=== PATIENT | female | born 1995 | race African-American/Black ===

== ENCOUNTER 2017-06-11 18:02 | Emergency (ER) | payer OTHER ==
[2017-06-11] MEDS ORDERED: ONDANSETRON 4 MG TAB.RAPDIS PO ONE (20:13)
--- NOTE | 2017-06-11 20:35 | ER Document Report ---
ED Medical Screen (RME) - General Chief Complaint: Nausea/Vomiting Stated Complaint: VOMITING Time Seen by Provider: 06/11/17 20:06 Notes: Patient is a 21-year-old female who presents to the emergency department today with complaints of vomiting which began at 0700. Patient states he has had associated abdominal cramping and diarrhea as well. Patient states she has noticed specks of red in her vomit but has not noticed any in her stool. Patient denies any sick contacts or dysuria. I have greeted and performed a rapid initial assessment of this patient. A comprehensive ED assessment and evaluation of the patient, analysis of test results, and completion of the medical decision making process will be conducted by additional ED providers. Review of systems: Constitutional: No symptoms reported EENT: No symptoms reported Cardiovascular: No symptoms reported Respiratory: No symptoms reported Gastrointestinal: No symptoms reported Genitourinary: No symptoms reported Musculoskeletal: No symptoms reported Skin: No symptoms reported Hematologic/Lymphatic: No symptoms reported Neurological/Psychological: No symptoms reported Yes All other systems reviewed and negative Physical Exam: General: Alert, appears well. HEENT: Normocephalic. Atraumatic. PERRLA. Extraocular movements intact. Oropharynx clear. Neck: Supple. Respiratory: No respiratory distress. Abdominal: Normal Inspection. No distension. Extremities: Moves all four extremities. Neurological: Normal cognition. AAOx4. Normal speech. Psychological: Normal affect. Normal Mood. Skin: Warm. Dry. Normal color. TRAVEL OUTSIDE OF THE [place] IN LAST 30 DAYS: No - Related Data Allergies/Adverse Reactions: metronidazole [From Flagyl] Adverse Reaction (Verified 06/11/17 20:02) Past Medical History - Social History Chew tobacco use (# tins/day): No Frequency of alcohol use: None Drug Abuse: None Renal/ Medical History: Denies: Hx Peritoneal Dialysis Physical Exam - Vital signs Vitals: Temp Pulse Resp BP Pulse Ox 97.5 F 66 16 97/51 L 100 06/11/17 18:08 06/11/17 18:08 06/11/17 18:08 06/11/17 18:08 06/11/17 18:08 Course - Vital Signs Vital signs: Temp Pulse Resp BP Pulse Ox 97.5 F 66 16 97/51 L 100 06/11/17 18:08 06/11/17 18:08 06/11/17 18:08 06/11/17 18:08 06/11/17 18:08
[2017-06-11 20:55] LABS: APPEARANCE,URINE SLIGHTLY-CLOUDY; BILIRUBIN,URINE NEGATIVE (NEGATIVE); COLOR,URINE YELLOW; GLUCOSE, URINE NEGATIVE (NEGATIVE); KETONES,URINE 80 mg/dL (NEGATIVE); LEUKOCYTE ESTERASE,URINE NEGATIVE (NEGATIVE); NITRITE,URINE NEGATIVE (NEGATIVE); PROTEIN,URINE 100 mg/dL (NEGATIVE); URINE SPECIFIC GRAVITY 1.031; UROBILINOGEN,URINE NEGATIVE mg/dL (<2.0)
--- NOTE | 2017-06-11 21:09 | ER Document Report ---
ED General - General Mode of Arrival: Ambulatory Information source: Patient TRAVEL OUTSIDE OF THE [place] IN LAST 30 DAYS: No - General Chief Complaint: Nausea/Vomiting Stated Complaint: VOMITING Time Seen by Provider: 06/11/17 20:06 Notes: Patient is a 21-year-old female presenting to the emergency department complaining of vomiting, diarrhea,and abdominal cramps onset this morning around 0600. Patient states that her abdominal cramps are relieved after she has a bowel movement. At bedside patient states that she feels better after receiving a dose of Zofran , further stating she only vomited once after receiving her dose. Patient's last menstrual period with 06/03/2017. (SHALA CUEVAS) - Related Data Allergies/Adverse Reactions: metronidazole [From Flagyl] Adverse Reaction (Verified 06/11/17 20:02) Past Medical History - General Information source: Patient - Social History Smoking Status: Never Smoker Chew tobacco use (# tins/day): No Frequency of alcohol use: None Drug Abuse: None Family History: Reviewed & Not Pertinent Patient has suicidal ideation: No Patient has homicidal ideation: No Review of Systems - Review of Systems Constitutional: No symptoms reported EENT: No symptoms reported Cardiovascular: No symptoms reported Gastrointestinal: See HPI, Abdominal pain, Diarrhea, Nausea, Vomiting Genitourinary: No symptoms reported Female Genitourinary: No symptoms reported Musculoskeletal: No symptoms reported Skin: No symptoms reported Hematologic/Lymphatic: No symptoms reported Neurological/Psychological: No symptoms reported -: Yes All other systems reviewed and negative Physical Exam - General General appearance: Appears well, Alert In distress: None - HEENT Head: Normocephalic, Atraumatic Eyes: Normal Conjunctiva: Normal Extraocular movements intact: Yes Pupils: PERRL Mucous membranes: Normal - Respiratory Respiratory status: No respiratory distress Chest status: Nontender Breath sounds: Normal Chest palpation: Normal - Cardiovascular Rhythm: Regular Heart sounds: Normal auscultation Murmur: No Friction rub: No Gallop: None auscultated - Abdominal Inspection: Normal Distension: No distension Bowel sounds: Normal Tenderness: Nontender. No: Guarding, Rebound Organomegaly: No organomegaly - Back Back: Normal - Extremities General upper extremity: Normal ROM General lower extremity: Normal ROM - Neurological Neuro grossly intact: Yes Cognition: Normal Orientation: AAOx4 [place] Scale Eye Opening: Spontaneous [place] Com[place] Scale Verbal: Oriented [place] Scale Motor: Obeys Commands [place] Scale Total: 15 Speech: Normal - Psychological Associated symptoms: Normal affect, Normal mood - Skin Skin Temperature: Warm Skin Moisture: Dry Skin Color: Normal - Vital signs Vitals: Temp Pulse Resp BP Pulse Ox 97.5 F 66 16 97/51 L 100 06/11/17 18:08 06/11/17 18:08 06/11/17 18:08 06/11/17 18:08 06/11/17 18:08 Course - Re-evaluation Re-evalutation: 06/11/17 21:44 Patient reports she is feeling much better, tolerating oral fluids with no nausea. She had a single 4 mg dose of Zofran earlier. She will be discharged with a Zofran 6 tabs dispensed pack. (SERJIO MERRILL) - Vital Signs Vital signs: Temp Pulse Resp BP Pulse Ox 98.1 F 70 16 110/66 100 06/11/17 21:55 06/11/17 21:55 06/11/17 21:55 06/11/17 21:55 06/11/17 21:55 - Laboratory Laboratory results interpreted by me: 06/11/17 20:20 Urine Protein 100 H Urine Ketones 80 H Discharge - Discharge Clinical Impression: Nausea vomiting and diarrhea Condition: Stable Disposition: HOME, SELF-CARE Additional Instructions: Gastroenteritis You most likely have gastroenteritis. This is an irritation of the stomach and intestinal tract. It's usually caused by a virus, but can also be caused by bacteria, toxins that cause food poisoning, or excessive alcohol intake. Symptoms may include fever, painful abdominal cramps, nausea, vomiting , and diarrhea. Start with small amounts (two to six ounces) of clear liquids (soft drinks , herb teas, broth, etc). Try to take fluids frequently even if you are vomiting, to prevent dehydration. When liquids are being consumed successfully , advance to small amounts of bland food (mashed potato, toast) for 6 - 12 hours. Gastroenteritis rarely requires medication. It goes away by itself. Use good handwashing so you don't spread germs. Wash underwear in very hot water. If symptoms are severe, talk to the doctor. Call your physician if blood appears in your vomitus or stool, if vomiting lasts longer than 24 hours, if the abdominal pain worsens or becomes localized to one area, or if you develop high fever. Take the Zofran 1 tablet dissolved of the tongue every 4-6 hours if needed for nausea. Drink small sips of cool clear liquids throughout the evening. Try Pepto-Bismol for diarrhea if needed. Follow-up with local medical doctor if not improving. RETURN TO THE EMERGENCY ROOM IF ANY NEW OR WORSENING SYMPTOMS. Forms: Return to Work Scribe Attestation: 06/11/17 23:23 I personally performed the services described in the documentation, reviewed and edited the documentation which was dictated to the scribe in my presence, and it accurately records my words and actions. (SERJIO MERRILL) Scribe Documentation - Scribe Written by Mary:: Mary Lechuga, 06/11/2017 21:09 acting as scribe for :: Oanh
[2017-06-11] MEDS ORDERED: ONDANSETRON ODT 4 MG TAB (6 TAB/ER DISP) PO PRN (21:43)
[2017-06-11 22:08] VITALS: BP 110/66
== END 2017-06-11 21:55 | disposition home or self-care (01) ==
LOC: ER 18:02
DX: R11.2 Nausea with vomiting, unspecified (principal); R19.7 Diarrhea, unspecified; R10.9 Unspecified abdominal pain
CPT/HCPCS: 99284; 81025; 81001; S0119

== ENCOUNTER 2018-01-04 14:50 | Emergency (ER) | payer OTHER ==
[2018-01-04 14:57] VITALS: BP 105/64
[2018-01-04] MEDS ORDERED: LEVONORGESTREL 1.5 MG TABLET (1 TAB/ER-USE) PO ONE (15:17)
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
== END 2018-01-04 15:40 | disposition home or self-care (01) ==
LOC: ER 14:50
DX: Z04.89 Encounter for examination and observation for other specified reasons (principal)
CPT/HCPCS: 99281; A9270

== ENCOUNTER 2018-03-09 13:39 | Emergency (ER) | payer OTHER ==
[2018-03-09] MEDS ORDERED: NORMAL SALINE 1000 ML 1,000 ML IV ONE (13:50)
[2018-03-09] MEDS ORDERED: ONDANSETRON HCL INJ/PF 4 MG/2 ML SDV IV ONE (13:50)
--- NOTE | 2018-03-09 13:50 | ER Document Report ---
ED Medical Screen (RME) - General Chief Complaint: Vomiting Stated Complaint: VOMITING Notes: 22-year-old female to the emergency department chief complaint of periumbilical pain, nausea and vomiting. Started this morning. Sharp pain radiating downward from the bellybutton. Large amount of nausea and vomiting. Cannot keep anything down. Just finished her period. No vaginal bleeding or spotting at this time. Still has her appendix, uterus, ovaries and gallbladder. I have greeted and performed a rapid initial assessment of this patient. A comprehensive ED assessment and evaluation of the patient, analysis of test results and completion of the medical decision making process will be conducted by additional ED providers. TRAVEL OUTSIDE OF THE [place] IN LAST 30 DAYS: No - Related Data Allergies/Adverse Reactions: metronidazole [From Flagyl] Adverse Reaction (Verified 03/09/18 13:40) Past Medical History - General Information source: Patient Renal/ Medical History: Denies: Hx Peritoneal Dialysis - Immunizations Immunizations up to date: Yes Review of Systems - Review of Systems Notes: Review of systems positive for the following: Nausea, vomiting, pelvic pain, abdominal pain Physical Exam - Vital signs Interpretation: Normal - Respiratory Respiratory status: No respiratory distress Chest status: Nontender Breath sounds: Normal Chest palpation: Normal - Cardiovascular Rhythm: Regular Heart sounds: Normal auscultation Murmur: No - Abdominal Inspection: Normal Distension: No distension Bowel sounds: Normal Tenderness: Nontender Organomegaly: No organomegaly
[2018-03-09 14:25] LABS: ABSOLUTE LYMPHOCYTES (AUTO) 0.6 10^3/uL (0.5-4.7); ABSOLUTE MONOCYTES (AUTO) 0.1 10^3/uL (0.1-1.4); ABSOLUTE NEUT (AUTO) 3.3 10^3/uL (1.7-8.2); BASOPHILS % (AUTO) 0.3 % (0-2); EOSINOPHILS % (AUTO) 0.1 % (0-6); HEMATOCRIT 29.8 % (36.0-47.0); HEMOGLOBIN 9.7 g/dL (12.0-15.5); LYMPHOCYTES % (AUTO) 14.2 % (13-45); MEAN CORPUSCULAR HEMOGLOBIN 20.4 pg (27.0-33.4); MEAN CORPUSCULAR HGB CONC 32.6 g/dL (32.0-36.0); MEAN CORPUSCULAR VOLUME 63 fl (80-97); MONOCYTES % (AUTO) 3.6 % (3-13); PLATELET COUNT 361 10^3/uL (150-450); RED BLOOD COUNT 4.75 10^6/uL (3.72-5.28); RED CELL DISTRIBUTION WIDTH 21.5 % (11.5-14.0); SEGMENTED NEUTROPHILS % (AUTO) 81.8 % (42-78); TOTAL CELLS COUNTED % (AUTO) 100 %
--- NOTE | 2018-03-09 14:34 | ER Document Report ---
ED General - General Chief Complaint: Vomiting Stated Complaint: VOMITING Time Seen by Provider: 03/09/18 13:50 Notes: 22-year-old female with no past medical history presents to the emergency department for shaking, vomiting, abdominal pain, and dizziness. She states that started this morning where she had intractable vomiting that was liquid and yellow. She complains of fevers, chills, nausea, dizziness, reduced appetite, loose stools, inability to hold anything down. She denies pain diarrhea, hematochezia, chest pain, shortness of breath, or any urinary symptoms. She denies any vaginal bleeding or abnormal discharge, states she just finished her period. She had a similar episode last year but states this time it is much worse. Last time she ate was yesterday. She denies any recent travel or any changes with her diet. TRAVEL OUTSIDE OF THE [place] IN LAST 30 DAYS: No - Related Data Allergies/Adverse Reactions: metronidazole [From Flagyl] Adverse Reaction (Verified 03/09/18 13:40) Past Medical History - General Information source: Patient - Social History Smoking Status: Never Smoker Chew tobacco use (# tins/day): No Frequency of alcohol use: Occasional Drug Abuse: None Family History: Reviewed & Not Pertinent Patient has suicidal ideation: No Patient has homicidal ideation: No Renal/ Medical History: Denies: Hx Peritoneal Dialysis - Immunizations Immunizations up to date: Yes Review of Systems - Review of Systems Constitutional: See HPI EENT: No symptoms reported Cardiovascular: See HPI Respiratory: See HPI Gastrointestinal: See HPI Genitourinary: See HPI Female Genitourinary: No symptoms reported Musculoskeletal: No symptoms reported Skin: No symptoms reported Hematologic/Lymphatic: No symptoms reported Neurological/Psychological: No symptoms reported Physical Exam - Vital signs Vitals: Temp Pulse Resp BP Pulse Ox 98.0 F 89 20 106/64 98 03/09/18 13:54 03/09/18 13:54 03/09/18 13:54 03/09/18 13:54 03/09/18 13:54 - Notes Notes: Reviewed vital signs and nursing note as charted by RN. CONSTITUTIONAL: Ill-appearing, acting appropriately for age HEAD: Normocephalic, atraumatic, no swelling EYES: PERRL, Conjunctivae clear, no drainage, EOMI, no scleral icterus ENT: External ears without lesions, External auditory canal is patent, no rhinorrhea, Pharynx without erythema or lesions, no tonsillar hypertrophy, airway patent, mucous membranes pink and moist NECK: Supple, no cervical lymphadenopathy, no masses CARD: Regular rate and rhythm, no murmurs, no rubs, no gallops, capillary refill < 2 seconds, symmetric pulses RESP: The lungs are clear to auscultation bilaterally, no wheezing, no rales, no rhonchi. Respiratory rate and effort are normal, normal chest excursion. No respiratory distress, no retractions, no stridor, no nasal flaring, no accessory muscle use. ABD/GI: Normal bowel sounds, non-distended, soft, non-tender, no rebound, no guarding, no palpable organomegaly EXT: Normal ROM in all joints, non-tender to palpation, no effusions, no edema SKIN: Normal color for age and race, warm, dry, good turgor, no acute lesions noted NEURO: No facial asymmetry, moves all extremities equally, motor and sensory function intact Course - Re-evaluation Re-evalutation: 03/09/18 14:33 Fairly ill-appearing 22-year-old female presents to the emergency department with intractable vomiting and nausea that started this morning. She is unable to hold anything down and is vomited several times. Last meal was last night. She denies diarrhea but says her stools are loose. She was seen in this emergency department for similar symptoms approximately 1 year ago and was diagnosed with gastroenteritis but states this illness is much worse. Normal saline 1 L IV was started in triage and is currently infusing. She was given Zofran 8 mg IV at the bedside. 03/09/18 14:34 03/09/18 16:35 Patient was given a second liter of Ringer's lactate because she has a hyperchloremic metabolic acidosis. Patient states she initially felt better. Patient then vomited and still has rigors. Plan is to give Reglan 10 mg IV and reassess. 03/09/18 17:40 Patient was able to give a urine sample which did show evidence of mild dehydration urine drug screen was added and was positive for marijuana. After interviewing patient patient did state that she has smoked marijuana last night. Because there is no evidence of infectious etiology or travel her symptoms are most likely secondary to hyperemesis secondary to marijuana use. Patient was counseled and I explained to her why this happens in that she needs to stop smoking marijuana if she does not wanted to happen again. Patient states she is feeling better and she did pass a p.o. challenge. State patient states she does feel well enough to discharge and wants to go home. - Vital Signs Vital signs: Temp Pulse Resp BP Pulse Ox 98.0 F 89 20 106/64 98 03/09/18 13:54 03/09/18 13:54 03/09/18 13:54 03/09/18 13:54 03/09/18 13:54 - Laboratory Result Diagrams: 03/09/18 14:08 03/09/18 14:08 Laboratory results interpreted by me: 03/09/18 03/09/18 03/09/18 14:08 14:08 16:08 Hgb 9.7 L Hct 29.8 L MCV 63 L MCH 20.4 L RDW 21.5 H Seg Neutrophils % 81.8 H Chloride 111 H Carbon Dioxide 19 L Glucose 129 H Total Protein 8.5 H Albumin 5.1 H Urine Ketones 20 H Discharge - Discharge Clinical Impression: Hyperemesis Condition: Good Disposition: HOME, SELF-CARE Instructions: Intravenous (IV) Fluids ([facility]), Reglan ([facility]) Additional Instructions: You were seen in the emergency department this evening for intractable vomiting. Because you had no recent travel or there was no evidence of infection your symptoms are most likely related to marijuana use. This condition called hyperemesis secondary to marijuana use is fairly common. The only way to prevent it from happening in the future is to stop smoking marijuana. There have been anecdotal reports that you can sit in a hot shower or use Shaking cream to help with the symptoms. You were hydrated with IV fluids and given some antinausea medications. If you continue to have intractable vomiting, pass out, develop fever, or any other concerning symptoms please merely return to the emergency room.
[2018-03-09 14:38] LABS: ALANINE AMINOTRANSFERASE 21 U/L (9-52); ALBUMIN 5.1 g/dL (3.5-5.0); ALKALINE PHOSPHATASE 54 U/L (38-126); ANION GAP 12 (5-19); ASPARTATE AMINO TRANSFERASE 33 U/L (14-36); BILIRUBIN,DIRECT 0.4 mg/dL (0.0-0.4); BILIRUBIN,TOTAL 0.6 mg/dL (0.2-1.3); BLOOD UREA NITROGEN 11 mg/dL (7-20); CALCIUM 10.1 mg/dL (8.4-10.2); CARBON DIOXIDE 19 mmol/L (22-30); CHLORIDE 111 mmol/L (98-107); GLUCOSE 129 mg/dL (75-110); LIPASE 86.9 U/L (23-300); POTASSIUM 4.3 mmol/L (3.6-5.0); SODIUM 141.5 mmol/L (137-145); TOTAL PROTEIN 8.5 g/dL (6.3-8.2)
[2018-03-09 14:51] LABS: HYPOCHROMASIA 2+; OVALOCYTES 1+; PLATELET COMMENT ADEQUATE; POIKILOCYTOSIS 1+; POLYCHROMASIA 1+; SCHISTOCYTES SLIGHT; TARGET CELLS 1+
[2018-03-09] MEDS ORDERED: RINGERS SOLUTION,LACTATED 1,000 ML IV ONE (14:51)
[2018-03-09] MEDS ORDERED: METOCLOPRAMIDE HCL INJ/PF 10 MG/2 ML SDV IV ONE (16:21)
[2018-03-09 16:26] LABS: APPEARANCE,URINE CLEAR; BILIRUBIN,URINE NEGATIVE (NEGATIVE); COLOR,URINE YELLOW; GLUCOSE, URINE NEGATIVE (NEGATIVE); KETONES,URINE 20 mg/dL (NEGATIVE); LEUKOCYTE ESTERASE,URINE NEGATIVE (NEGATIVE); NITRITE,URINE NEGATIVE (NEGATIVE); PROTEIN,URINE NEGATIVE (NEGATIVE); URINE SPECIFIC GRAVITY 1.017; UROBILINOGEN,URINE NEGATIVE mg/dL (<2.0)
[2018-03-09 17:06] LABS: URINE AMPHETAMINES SCREEN NEGATIVE; URINE BARBITURATES SCREEN NEGATIVE; URINE BENZODIAZEPINES SCREEN NEGATIVE; URINE COCAINE SCREEN NEGATIVE; URINE MARIJUANA (THC) SCREEN UNCONFIRMED POSITIVE; URINE METHADONE SCREEN NEGATIVE; URINE PHENCYCLIDINE SCREEN NEGATIVE
[2018-03-09 17:51] VITALS: BP 99/68
[2018-03-10 13:13] LABS: PATH REVIEW PATHOLOGIST REVIEWED
== END 2018-03-09 17:56 | disposition home or self-care (01) ==
LOC: ER 13:39
DX: R11.2 Nausea with vomiting, unspecified (principal); R10.9 Unspecified abdominal pain; E87.2 Acidosis; E86.0 Dehydration; R42 Dizziness and giddiness; R19.4 Change in bowel habit; Z87.19 Personal history of other diseases of the digestive system
CPT/HCPCS: 99284; 96361; 96374; 96375; 36415; 83690; 85025; 81025; 80053; 81001; 80307; J2765; J2405; J7030; J7120